=== PATIENT | female | born 1940 | race Caucasian/White ===

== ENCOUNTER 2017-01-07 11:16 | Day surgery (SDC) | payer MEDICARE, BC ==
[~2017-01-07 11:16] MED LIST: ACETAMINOPHEN 325 MG TABLET PO PRN; ACETYLCHOLINE CHLORIDE 20 DROP KIT IO PRN; BUPIVACAINE HCL/PF 30 ML VIAL IJ PRN; CYCLOPENTOLATE HCL 20 DROP BTL RIGHTEYE PRN; DEXTROSE 5%-0.5 NORMAL SALINE 1,000 ML IV PRN; EPINEPHrine 1 MG/ML AMPUL IO PRN; HYALURONATE SODIUM 0.4 ML DISP.SYRIN IO PRN; HYALURONATE SODIUM 0.85 ML DISP.SYRIN IO PRN; LIDOCAINE HCL/PF 200 MG/5 ML AMPUL TP PRN; LIDOCAINE HCL/PF 5 ML VIAL IO PRN; NORMAL SALINE 3 ML BOX IV PRN; TETRACAINE HCL 150 DROP BTL OP PRN
[2017-01-07] MEDS: PHENYLEPHRINE HCL 50 DROP BTL RIGHTEYE PRN ×3 (12:53→13:14)
[2017-01-07] MEDS: TROPICAMIDE 150 DROP BTL RIGHTEYE PRN ×3 (12:53→13:14)
[2017-01-07] MEDS ORDERED: TRYPAN BLUE 0.5 ML DISP.SYRIN RIGHTEYE ONE (13:25)
[2017-01-07 15:32] VITALS: BP 111/43
== END 2017-01-07 11:17 | disposition home or self-care (01) ==
LOC: AMB 11:16
PROVIDERS: ATTEND Ophthalmology
PROC: 08RJ3JZ Replacement of Right Lens with Synthetic Substitute, Percutaneous Approach (ICD-10-PCS; principal; 2017-01-07 13:30)
DX: H26.9 Unspecified cataract (principal); Z68.21 Body mass index [BMI] 21.0-21.9, adult